=== PATIENT | male | born 1975 | race Hispanic/Latino ===

== ENCOUNTER → 2023-09-26 | Emergency (ER) | payer SELFPAY ==
[~2023-09-26] MED LIST: DIPHENHYDRAMINE 50 MG/ML VIAL ONE; KETOROLAC 30 MG/ML INJ ONE; NA CHLORIDE 0.9% 1,000 ML ONE; ONDANSETRON 4 MG/2 ML VIAL ONE
--- OUTSIDE RECORDS SUMMARY | 2023-09-26 21:04 | XMS REPORT | Continuity of Care Document ---
Author Name Unknown Address [address] [place] [address] [facility] thconnect Address 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 [id number] [facility] 2019-10-21 09:20:00 2019-10-21 09:20:00 Outpatient [facility] [id number] [facility]
[2023-09-26 22:30] LABS: Absolute Lymphocytes (CBC) 1.8 K/uL (0.7-4.9); Hematocrit 48.1 % (39.6-49.0); Lymphocytes % 21.9 % (15.3-44.8); MCV 86.1 fL (80-100); MPV 8.7 fL (7.6-11.3); Platelets 214 thou/uL (152-406); RBC Red Blood Cell Count 5.59 M/uL (4.33-5.43)
[2023-09-26 22:43] LABS: Albumin 3.9 g/dL (3.4-5.0); Bilirubin Total 0.5 mg/dL (0.2-1.0); Potassium 3.2 mEq/L (3.5-5.1)
[2023-09-26 23:01] LABS: SARS-CoV-2 Antigen Rapid Res Negative (Negative)
--- NOTE | 2023-09-26 23:26 | ER ---
Nurse's Notes [facility] Name: Rodo Olvera Age: 48 yrs Sex: Male : 1975 Arrival Date: 09/26/2023 Time: 21:02 Bed 7 Private MD: Diagnosis: Viral infection, unspecified Presentation: 09/26 21:21 Chief complaint: Patient states: 1 WK NAUSEA, DIARRHEA, BODY ACHES. Coronavirus screen: bp At this time, the client does not indicate any symptoms associated with coronavirus-19. Ebola Screen: No symptoms or risks identified at this time. Initial Sepsis Screen: Does the patient meet any 2 criteria? No. Patient's initial sepsis screen is negative. Does the patient have a suspected source of infection? No. Patient's initial sepsis screen is negative. Risk Assessment: Do you want to hurt yourself or someone else? Patient reports no desire to harm self or others. Onset of symptoms is unknown. 21:21 Method Of Arrival: Ambulatory bp 21:21 Acuity: MARCELA 4 bp Historical: - Allergies: 21:22 No Known Allergies; bp - Home Meds: 21:22 None [Active]; bp - PMHx: 21:22 None; bp - Immunization history:: Adult Immunizations up to date. - Social history:: Smoking status: Patient denies any tobacco usage or history of. Screenin:21 [facility] ED Fall Risk Assessment (Adult) History of falling in the last 3 months, ha1 including since admission No falls in past 3 months (0 pts) Confusion or Disorientation No (0 pts). Abuse screen: Denies threats or abuse. Denies injuries from another. Nutritional screening: No deficits noted. Tuberculosis screening: No symptoms or risk factors identified. Assessment: 21:30 General: Appears uncomfortable, Behavior is calm, cooperative. Pain: Complains of pain ha1 in abdomen and head Pain does not radiate. Pain currently is 10 out of 10 on a pain scale. Quality of pain is described as throbbing. Neuro: Level of Consciousness is awake, alert, obeys commands, Oriented to person, place, time, situation. Neuro: Reports headache in entire. Cardiovascular: Capillary refill < 3 seconds Patient's skin is warm and dry. Respiratory: Airway is patent Respiratory effort is even, unlabored, Respiratory pattern is regular, symmetrical. GI: Abdomen is round non-distended, Bowel sounds present X 4 quads. Reports diarrhea, nausea. : No signs and/or symptoms were reported regarding the genitourinary system. Derm: Skin is pink, warm \T\ dry. Musculoskeletal: Circulation, motion, and sensation intact. Range of motion: intact in all extremities. 22:30 Reassessment: Patient and/or family updated on plan of care and expected duration. Pain ha1 level reassessed. Patient is alert, oriented x 3, equal unlabored respirations, skin warm/dry/pink. Patient states feeling better. Patient states symptoms have improved. 23:30 Reassessment: Patient and/or family updated on plan of care and expected duration. Pain ha1 level reassessed. Patient is alert, oriented x 3, equal unlabored respirations, skin warm/dry/pink. Patient denies pain at this time. Patient states feeling better. Patient states symptoms have improved. Vital Signs: 21:21 BP 150 / 111; Pulse 117; Resp 18; Temp 98.5; Pulse Ox 100% ; Weight 108.86 kg; Height 5 bp ft. 9 in. ; 22:05 BP 108 / 74; Pulse 92; Resp 16 S; Pulse Ox 98% on R/A; ha1 22:54 BP 126 / 90; Pulse 88; Resp 17 S; Pulse Ox 97% on R/A; ha1 23:47 BP 134 / 98; Pulse 85; Resp 17 S; Pulse Ox 100% on R/A; ha1 21:21 Body Mass Index 35.44 (108.86 kg, 175.26 cm) bp ED Course: 21:04 Patient arrived in ED. [id number] 21:06 Curt Linton MD is Attending Physician. ec2 21:22 Triage completed. bp 21:22 Arm band placed on. bp 21:30 Patient has correct armband on for positive identification. Placed in gown. Bed in low ha1 position. Call light in reach. Side rails up X 1. 21:30 Inserted saline lock: 20 gauge in right forearm, using aseptic technique. Blood ha1 collected. 23:47 No provider procedures requiring assistance completed. IV discontinued, intact, ha1 bleeding controlled, No redness/swelling at site. Pressure dressing applied. 23:49 Provided Education on: medication administration . ha1 Administered Medications: 22:00 Drug: NS 0.9% IV 1000 ml IV at 1 bolus Per protocol; 1000 mL bolus Route: IV; Rate: 1 ha1 bolus; Site: right forearm; 22:59 Follow up: Response: No adverse reaction; IV Status: Completed infusion; IV Intake: ha1 1000ml 22:00 Drug: Ondansetron IVP 4 mg IVP once; over 2 minutes Route: IVP; Site: right forearm; ha1 22:30 Follow up: Response: No adverse reaction; Nausea is decreased ha1 22:02 Drug: Ketorolac IVP 15 mg IVP once Route: IVP; Site: right forearm; ha1 22:30 Follow up: Response: No adverse reaction; Pain is decreased ha1 22:04 Drug: diphenhydrAMINE IVP 25 mg IVP once Route: IVP; Site: right forearm; ha1 22:30 Follow up: Response: No adverse reaction ha1 Medication: 23:49 VIS not applicable for this client. ha1 Intake: 22:59 IV: 1000ml; Total: 1000ml. ha1 Outcome: 23:25 Discharge ordered by . ec2 23:48 Discharged to home ambulatory, ha1 23:48 Condition: stable 23:48 Discharge instructions given to patient, Instructed on discharge instructions, follow up and referral plans. medication usage, Demonstrated understanding of instructions, follow-up care, medications, Prescriptions given X 1, 23:49 Patient left the ED. ha1 Signatures: Nima Hammond RN RN Andie Jimenez jj6 Marlene Kelley RN RN 1 Curt Linton MD MD ec2 Corrections: (The following items were deleted from the chart) 22:55 22:30 Reassessment: Patient and/or family updated on plan of care and expected ha1 duration. Pain level reassessed. Patient is alert, oriented x 3, equal unlabored respirations, skin warm/dry/pink. ha1
--- NOTE | 2023-09-26 23:26 | EDPHYS ---
Physician Documentation [facility] Name: Rodo Olvera Age: 48 yrs Sex: Male : 1975 Arrival Date: 09/26/2023 Time: 21:02 Bed 7 Private MD: ED Physician Curt Linton HPI: 09/26 21:24 This 48 yrs old Male presents to ER via Ambulatory with complaints of Cough, ec2 Fever, Nausea, Decreased Appetite. 21:24 Patient arrives today for URI signs and symptoms. Patient reports he has been ec2 experiencing 1 week of symptoms. States that he is having cough and congestion as well as nausea, diarrhea symptoms. Patient reports decreased p.o. intake and increased fatigue. Patient reports no urinary complaints, no difficulty breathing. Reports multiple sick contacts at home with similar symptoms.. Historical: - Allergies: 21:22 No Known Allergies; bp - Home Meds: 21:22 None [Active]; bp - PMHx: 21:22 None; bp - Immunization history:: Adult Immunizations up to date. - Social history:: Smoking status: Patient denies any tobacco usage or history of. ROS: 21:24 Constitutional: as per hpi ec2 Exam: 21:24 Constitutional: GEN: NAD Head: atraumatic Eyes: EOMI Ears: External ears are ec2 normal. CV: Tachycardia LUNGS: no respiratory distress, no wheezes, no rales, no rhonchi ABD: non-distended SKIN: no evidence of rashes MSK: no evidence of trauma NEURO: moves all extremities equally Vital Signs: 21:21 BP 150 / 111; Pulse 117; Resp 18; Temp 98.5; Pulse Ox 100% ; Weight 108.86 kg; Height 5 bp ft. 9 in. ; 22:05 BP 108 / 74; Pulse 92; Resp 16 S; Pulse Ox 98% on R/A; ha1 22:54 BP 126 / 90; Pulse 88; Resp 17 S; Pulse Ox 97% on R/A; ha1 23:47 BP 134 / 98; Pulse 85; Resp 17 S; Pulse Ox 100% on R/A; ha1 21:21 Body Mass Index 35.44 (108.86 kg, 175.26 cm) bp MDM: 21:18 Patient medically screened. ec2 21:24 Data reviewed: vital signs. ED course: Patient arrives today for evaluation of URI ec2 signs and symptoms. Examination remarkable for well-appearing nontoxic individual who is slightly tachycardic and otherwise well-appearing. Will obtain lab work, viral swabs. Suspect viral infection causing patient's symptoms. Low suspicion for pneumonia given lack of focal lung sounds accordingly will defer chest x-ray testing. Will give the patient crystalloid, antiemetic and reassess patient. . 23:06 ED course: CBC is reassuring. Metabolic profile with slight hypokalemia noted. COVID ec2 testing negative. . 23:24 ED course: On reassessment patient with improving symptoms, will discharge home, ec2 instructed on [id number] medications. Return precautions given.. 09/26 21:24 Order name: CBC with Diff; Complete Time: 23:06 ec2 09/26 21:24 Order name: CMP; Complete Time: 23:06 ec2 09/26 21:24 Order name: SARS RAPID; Complete Time: 23:06 ec2 09/26 21:24 Order name: Influenza Screen (a \T\ B); Complete Time: 23:23 ec2 Administered Medications: 22:00 Drug: NS 0.9% IV 1000 ml IV at 1 bolus Per protocol; 1000 mL bolus Route: IV; Rate: 1 ha1 bolus; Site: right forearm; 22:59 Follow up: Response: No adverse reaction; IV Status: Completed infusion; IV Intake: ha1 1000ml 22:00 Drug: Ondansetron IVP 4 mg IVP once; over 2 minutes Route: IVP; Site: right forearm; ha1 22:30 Follow up: Response: No adverse reaction; Nausea is decreased ha1 22:02 Drug: Ketorolac IVP 15 mg IVP once Route: IVP; Site: right forearm; ha1 22:30 Follow up: Response: No adverse reaction; Pain is decreased ha1 22:04 Drug: diphenhydrAMINE IVP 25 mg IVP once Route: IVP; Site: right forearm; ha1 22:30 Follow up: Response: No adverse reaction ha1 Disposition Summary: 09/26/23 23:25 Discharge Ordered Notes: Location: Home ec2 Condition: Stable(09/26/23 23:25) ec2 Diagnosis - Viral infection, unspecified ec2 Followup: ec2 - With: Private Physician - When: - Reason: Recheck today's complaints Discharge Instructions: - Discharge Summary Sheet ec2 - Viral Illness, Adult ec2 Forms: - Medication Reconciliation Form ec2 - Thank You Letter ec2 - Antibiotic Education ec2 - Prescription Opioid Use ec2 - Patient Portal Instructions ec2 - Leadership Thank You Letter ec2 Prescriptions: - Compazine 10 mg Oral Tablet - take 1 tablet ORAL route every 8 hours As needed; 20 tablet; Refills: 0, ec2 Product Selection Permitted Signatures: Dispatcher [employer] Nima Wheeler RN RN Marlene Kelley RN RN ha1 Curt Linton MD MD ec2 Corrections: (The following items were deleted from the chart) 23:25 23:25 Fair ec2 ec2
[2023-09-27 02:44] VITALS: BP 134/98; TEMP 98.5; O2SAT 100
== END ==
LOC: ER 21:02
DX: B34.9 Viral infection, unspecified (principal); Z11.52 Encounter for screening for COVID-19
CPT/HCPCS: 36415; 80053; 85025; 87804; 87811; 96361; 96374; 96375; 99284; J1200; J2405; J7030